=== PATIENT | female | born 1990 | race Caucasian/White ===

== ENCOUNTER 2018-04-09 19:04 | Inpatient (IN) | payer OTHER, SELFPAY ==
[2018-04-09 19:43] VITALS: BMI 37.0
[2018-04-09] MEDS: 0.9% Saline Lock 10 ML Syringe IV (21:00)
[2018-04-09 21:06] LABS: Bedside Glucose 78 mg/dL (70-110)
[2018-04-09 21:26] LABS: Hematocrit 32.3 % (37-47); Hemoglobin 10.1 g/dl (12.0-15.0); Mean Corp Hgb Conc 31.3 g/gl (32-36); Mean Corpuscular Hgb 24.7 pg (27.0-32.0); Mean Platelet Vol. 9.9 fl (6.2-12.0); Platelet Count 279 K/mm3 (150-450); RBC Distribution Width CV 13.9 % (11.6-14.6); RBC Distribution Width SD 39.5 fl (35.1-43.9); Red Blood Count 4.09 M/mm3 (4.2-5.4); White Blood Count 10.6 K/mm3 (4.4-11.0)
[2018-04-09 21:27] LABS: Scan Indicated on CBC? Y/N NO
[2018-04-09] MEDS: Lactated Ringers 1,000 ML 50 ML IV (23:35)
[2018-04-09] MEDS: Oxytocin 30 units/NS 500 ml 30 UNITS/500 ML IV.SOLN IV (23:35)
[2018-04-10 00:31] LABS: Bedside Glucose 87 mg/dL (70-110)
--- NOTE | 2018-04-10 00:41 | PCM.HP.OB ---
- Problem List (1) Gestational diabetes mellitus Status: Acute Qualifiers: Gestational diabetes mellitus control: diet-controlled Trimester: third trimester Qualified Code(s): O24.410 - Gestational diabetes mellitus in , diet controlled (2) Gestational hypertension Status: Acute Qualifiers: Trimester: third trimester Qualified Code(s): O13.3 - Gestational [-induced] hypertension without significant proteinuria, third trimester History Date of Admission: 04/09/18 Final HAVEN: 04/22/18 Gestational age: 38 Weeks and 2 Days History of this : This is a 27 year-old, G [3], P [2], at 38 weeks gestational age. GBS neg Induction for Gestational hypertension and GDMA1 Allergies amoxicillin Allergy (Verified 04/09/18 19:50) Rash Penicillins Allergy (Verified 04/09/18 19:50) Rash Smoking Status: Never smoker Heart Tracing: Cat 1 and reactive TOCO Analysis: q 2-5 min History Past Pregnancies: Past Pregnancies Delivery Date Name GA/Weeks Outcome Route Weight Infant Gender Labor Length Anesthesia Delivery Location Provider FOB 2014 39 F 2016 38 M Labs: GBS neg Expected Infant Delivery Method: Spontaneous Vaginal Describe any other labor & delivery plans:: EFW 8#4 Number of Visits: 14 Assessment/Plan All Active Problems Gestational diabetes mellitus (Acute) Gestational hypertension (Acute) This is a 27 year-old, G [], P [], at 38 weeks gestational age.
[2018-04-10] MEDS: Oxytocin 30 units/NS 500 ml 30 UNITS/500 ML IV.SOLN 334 UNITS IV (04:25)
--- NOTE | 2018-04-10 04:57 | PCM.OB.VAG ---
- Problem List (1) Gestational diabetes mellitus Status: Acute Qualifiers: Gestational diabetes mellitus control: diet-controlled Trimester: third trimester Qualified Code(s): O24.410 - Gestational diabetes mellitus in , diet controlled (2) Gestational hypertension Status: Acute Qualifiers: Trimester: third trimester Qualified Code(s): O13.3 - Gestational [-induced] hypertension without significant proteinuria, third trimester Vaginal Delivery Maternal Presentation: Medically Indicated Induction Method of Induction: Pitocin, Amniotomy Medical Reason for Induction: Gestational Hypertension Amniotic Membrane Rupture Type: Artificial Rupture of Membrane time: 5404/10/2018 Amniotic Fluid Description: Clear Final HAVEN: 04/22/18 Gestational age: 38 Weeks and 2 Days Date of Procedure: 04/10/18 Pre-Operative Diagnosis: GHTN, GDMA1 Post-Operative Diagnosis: same+ shoulder dystocia Surgery/ Procedure Performed: Spontaneous Vaginal Delivery Type of Anesthesia: Epidural Presentation: Vertex, MANUEL Placental Delivery Description: Spontaneous Placenta Disposition: [facility] Cord Vessel Description: 3 Vessels Nuchal Cord Compression: Without compression Cord Entanglement: Around neck x 1, loose Drain: Lowe to straight drain Estimated Blood Loss: 250 Infant A gender: Female (1 minute): 8 (5 minute): 9 Episiotomy Description: None Laceration: None Medications given after delivery: IV Pitocin Complications: None - Shoulder dystocia MANUEL Keith and suprapubic used to decompress with ease. Mother and FOB made aware and event discussed. Baby moving upper extremities equally.
[2018-04-10] MEDS: Oxytocin 30 units/NS 500 ml 30 UNITS/500 ML IV.SOLN 167 UNITS IV (05:00)
[2018-04-10 08:00] VITALS: BP 134/76; PULSE 80; RESP 16; TEMP 37.1
[2018-04-10] MEDS: Ibuprofen 600 MG Tablet PO ×2 (08:50→16:41)
[2018-04-10 13:05] VITALS: BP 117/56; PULSE 65; RESP 16; TEMP 36.9
[2018-04-10 16:10] VITALS: BP 141/94; PULSE 66; RESP 16; TEMP 36.9; O2SAT 98
[2018-04-10] MEDS: Senna/Docusate Sodium 1 Tablet PO (16:41)
[2018-04-10 18:30] VITALS: BP 146/87
--- NOTE | 2018-04-10 18:43 | NURSING ---
Dr. Jeff phoned. voicemail left
[2018-04-10 20:39] VITALS: BP 136/83; PULSE 71; RESP 18; TEMP 36.7; O2SAT 98
[2018-04-11 00:49] VITALS: BP 117/73; PULSE 73; RESP 18; TEMP 36.7; O2SAT 99
[2018-04-11] MEDS: Ibuprofen 600 MG Tablet PO (03:07)
[2018-04-11 03:08] VITALS: BP 144/95; PULSE 93; RESP 18; TEMP 36.8; O2SAT 98
[2018-04-11 08:58] VITALS: BP 142/84; PULSE 74; RESP 18; TEMP 36.7
[2018-04-11 15:07] VITALS: BP 129/84; PULSE 87; RESP 18; TEMP 36.8
--- NOTE | 2018-04-11 18:06 | PCM.PN.OB ---
Patient Problems: Active and Suspected Problems (Last Updated 04/10/18 @ 00:45 by Beverly Jeff DO) Gestational diabetes mellitus (Acute) Gestational hypertension (Acute) Subjective: doing well no complaints - Physical Exam General: Alert, Oriented x3 Vital Signs Temp Pulse Resp BP Pulse Ox 98.3 F 87 18 129/84 H 98 04/11/18 15:07 04/11/18 15:07 04/11/18 15:07 04/11/18 15:07 04/11/18 03:08 Oxygen Delivery Method Room Air Weight: 244 lb Body Mass Index (BMI) 37.0 Intake and Output for Last 24 Hours 04/09/18 04/10/18 04/11/18 23:59 23:59 23:59 Intake Total 1700 / 1700 Output Total 650 / 650 Balance 1050 / 1050 Medical Necessity - Tobacco Use Smoking Status: Never smoker Assessment/Plan All Active Problems (Last Updated 04/10/18 @ 00:45 by Beverly Jeff DO) Gestational diabetes mellitus (Acute) Gestational hypertension (Acute) s/p PPD # 1 1. routine post delivery care 2. breast feeding- support given 3. rh negative- rhogam PRN 4. rubella immune infant SCN GDMA1- check FBS in am
--- NOTE | 2018-04-11 18:07 | PCM.DCVAG ---
Discharge Diet: No Restrictions Discharge Activity: Return to Normal Activity, May not drive while taking narcotic pain medications., May Shower May resume sexual activity in: 4-6 weeks Call your doctor if your incision/area has: Continuous Slow Oozing, Sudden Increased Bleeding, Increased Pain/ Swelling, Increased Redness, Foul Smelling Discharge Additional Instructions: If you experience any of the following, contact your healthcare provider. Bleeding that soaks a pad every hour for 2 hours Fever 100.4 or higher Unrelieved incision or abdominal pain Swelling, redness, discharge or bleeding from your incision or episiotomy site Your incision begins to separate Problems urinating (including inability to urinate or burning while urinating). Visual changes Severe headache Flu-like symptoms Pain or redness in one of both of your breasts Pain, warmth, tenderness or swelling in your legs, especially the calf area Frequent nausea and vomiting Symptoms of depression or anxiety If you experience any of the following, call 911 or go to the nearest Emergency Room. Chest pain Problems breathing Seizure activity Partial or complete paralysis of a body part, slurred speech, weakness or drooping of the face, or a sudden inability to walk or hold your balance Allergies/Adverse Reactions: Allergies amoxicillin Allergy (Verified 04/09/18 19:50) Rash Penicillins Allergy (Verified 04/09/18 19:50) Rash Please Follow Up With: Adelina Vallejo MD - [phone] When: Call to make an appointment with your doctor in 6 weeks. If you had elevated Blood pressure or 4th degree laceration you will need to be seen in 2 weeks. Primary Care Physician: Joe Garcia [Primary Care Provider] - Test Results: Test results from this visit will be discussed in further detail at your follow-up appointment, if applicable.
--- NOTE | 2018-04-11 18:08 | DCINST_ITS ---
Discharge Diet: No Restrictions Discharge Activity: Return to Normal Activity, May not drive while taking narcotic pain medications., May Shower May resume sexual activity in: 4-6 weeks Call your doctor if your incision/area has: Continuous Slow Oozing, Sudden Increased Bleeding, Increased Pain/ Swelling, Increased Redness, Foul Smelling Discharge Additional Instructions: If you experience any of the following, contact your healthcare provider. * Bleeding that soaks a pad every hour for 2 hours * Fever 100.4 or higher * Unrelieved incision or abdominal pain * Swelling, redness, discharge or bleeding from your incision or episiotomy site * Your incision begins to separate * Problems urinating (including inability to urinate or burning while urinating). * Visual changes * Severe headache * Flu-like symptoms * Pain or redness in one of both of your breasts * Pain, warmth, tenderness or swelling in your legs, especially the calf area * Frequent nausea and vomiting * Symptoms of depression or anxiety If you experience any of the following, call 911 or go to the nearest Emergency Room. * Chest pain * Problems breathing * Seizure activity * Partial or complete paralysis of a body part, slurred speech, weakness or drooping of the face, or a sudden inability to walk or hold your balance Allergies/Adverse Reactions: Allergies amoxicillin Allergy (Verified 04/09/18 19:50) Rash Penicillins Allergy (Verified 04/09/18 19:50) Rash Please Follow Up With: Adelina Vallejo MD - [phone] When: Call to make an appointment with your doctor in 6 weeks. If you had elevated Blood pressure or 4th degree laceration you will need to be seen in 2 weeks. Primary Care Physician: Joe Garcia [Primary Care Provider] - Test Results: Test results from this visit will be discussed in further detail at your follow- up appointment, if applicable.
--- NOTE | 2018-04-11 21:16 | NURSING ---
RN discussed with pt that she is able to stay and be discharged tomorrow or may be discharged tonight to courtesy room status if pt desires per physician. pt states im feeling really good, i would like to be discharged tonight
[2018-04-11 21:26] VITALS: BP 116/70; PULSE 79; RESP 18; TEMP 36.9; O2SAT 98
--- NOTE | 2018-04-11 22:23 | NURSING ---
3270 pt discharged, baby remains in SCN, pt now on courtesy room status, papers reviewed and signed with pt and
== END 2018-04-11 22:07 | disposition home or self-care (01) | DRG 807 ==
PROVIDERS: Admitting Provider Obstetrics & Gynecology; Family Provider Family Medicine; PCP Family Medicine; Visit Provider Obstetrics & Gynecology
DX: O24.420 Gestational diabetes mellitus in childbirth, diet controlled (principal); Z37.0 Single live birth; O66.0 Obstructed labor due to shoulder dystocia; O69.81X0 Labor and delivery complicated by cord around neck, without compression, not applicable or unspecified; O13.4 Gestational [pregnancy-induced] hypertension without significant proteinuria, complicating childbirth; Z3A.38 38 weeks gestation of pregnancy
CPT/HCPCS: 59025; 59050; 82962; 85027; 85461; 86850; 86900; 90384; 99218; J7120; A4216; G0378; J2790

== ENCOUNTER → 2019-12-17 11:12 | Outpatient (CLI) | payer OTHER, SELFPAY ==
[2019-12-17 10:15] VITALS: BMI 37.0
[2019-12-17 11:36] LABS: Glucose Challenge Gest 1H 50g 145 mg/dL (70-140)
== END ==
PROVIDERS: PCP Family Medicine; Referring Provider Obstetrics & Gynecology; Visit Provider Obstetrics & Gynecology
DX: O99.210 Obesity complicating pregnancy, unspecified trimester (principal); E66.9 Obesity, unspecified; Z3A.00 Weeks of gestation of pregnancy not specified
CPT/HCPCS: 36415; 82950

== ENCOUNTER → 2020-01-15 15:35 | Outpatient (CLI) | payer OTHER, SELFPAY ==
[2020-01-15 15:03] VITALS: BMI 33.6
[2020-01-15 16:29] LABS: Glucose Challenge Gest 1H 50g 151 mg/dL (70-140)
[2020-01-15 18:17] LABS: Amphetamine Urine VISTA NEGATIVE (<1000 ng/mL); Barbiturate Urine VISTA NEGATIVE (< 200 ng/mL); Benzodiazepine Urine VISTA NEGATIVE (< 200 ng/mL); Cocaine Urine VISTA NEGATIVE (< 300 ng/mL); Ecstacy Urine VISTA NEGATIVE (< 500 ng/mL); Methadone Urine VISTA NEGATIVE (< 300 ng/mL); PCP Urine VISTA NEGATIVE (< 25 ng/mL); THC Urine VISTA NEGATIVE (< 50 ng/mL); Vista UDS pH Range 6
[2020-01-16 09:29] LABS: Hepatitis C Antibody Non-Reactive (Nonreactive)
== END ==
PROVIDERS: PCP Family Medicine; Referring Provider Nurse Practitioner Women's Health; Visit Provider Nurse Practitioner Women's Health
DX: O09.90 Supervision of high risk pregnancy, unspecified, unspecified trimester (principal); Z3A.00 Weeks of gestation of pregnancy not specified
CPT/HCPCS: 36415; 80307; 82950; 86762; 86803

== ENCOUNTER → 2020-04-01 15:19 | Outpatient (CLI) | payer OTHER, SELFPAY ==
[2020-04-01 15:08] VITALS: BMI 34.7
[2020-04-01 15:52] LABS: Absolute Lymphocyte Count 2.14 X10^3/uL (0.83-4.51); Absolute Neutrophil Count 9.7 X10^3/uL (2.0-7.7); Basophil# 0.02 X10^3/uL; Basophil% 0.2 % (0-1); Eosinophil# 0.05 X10^3/uL; Eosinophils% 0.4 % (0-5); Hematocrit 34.4 % (37-47); Hemoglobin 11.7 g/dL (12.0-15.0); Lymphocyte # 2.14 X10^3/ul (4.0); Lymphocyte % 17.2 % (19-41); Mean Corpuscular Hgb 29.5 pg (27.0-32.0); Mean Corpuscular Volume 86.9 fL (81-99); Monocyte# 0.45 X10^3/uL; Monocyte% 3.6 % (0-10); NRBC Flagged by Analyzer 0 % (0-5); Neutrophil # 9.71 X10^3/uL (2.7-7.7); Platelet Count 262 K/mm3 (150-450); RBC Distribution Width CV 13.4 % (11.6-14.6); RBC Distribution Width SD 41.6 fl (35.1-43.9); Red Blood Count 3.96 M/mm3 (4.2-5.4); White Blood Count 12.4 K/mm3 (4.4-11.0)
== END ==
PROVIDERS: Obstetrics & Gynecology; PCP Family Medicine; Referring Provider Nurse Practitioner Women's Health; Visit Provider Nurse Practitioner Women's Health
DX: O09.90 Supervision of high risk pregnancy, unspecified, unspecified trimester (principal)
CPT/HCPCS: 36415; 85025; 86850; 86900; 86901

== ENCOUNTER → 2020-04-30 14:18 | Outpatient (CLI) | payer OTHER, SELFPAY ==
[2020-04-01 15:51] VITALS: BMI 34.7
[2020-04-15 15:17] VITALS: BMI 34.7
--- NOTE | 2020-04-30 14:23 | US_ITS ---
STUDY: SECOND AND THIRD TRIMESTER OBSTETRICAL ULTRASOUND - LIMITED REASON FOR EXAM: Female, 29 years old GROWTH -- HX OF DIABETES -- SUPERVISION OF HIGH RISK LMP: 09/17/2019. PRIOR ULTRASOUND: None. TECHNIQUE: Transabdominal TECHNICAL QUALITY: Adequate. FINDINGS: There is a single intrauterine fetus. The fetus is in a cephalic presentation. There is demonstrated cardiac activity with a heart rate of 138 bpm. There is a normal amniotic fluid volume. The largest amniotic fluid pocket measures 3.8 cm x 4 cm. The amniotic fluid index (TJ) is 12.59 cm. The placenta is posterior in location and is not low lying. There are Grade 1 placental changes. The cervix measures 4.4 cm in length. BIOMETRY: BPD: 8.42 cm: 33 weeks, 6 days HC: 30.64 cm: 32 weeks, 5 days AC: 28.13 cm: 32 weeks, 1 days FL: 6.38 cm: 32 weeks, 6 days Age by LMP: 32 weeks, 2 days. HAVEN by LMP: 06/24/2020. age by current US: 33 weeks, 0 days. HAVEN by current US: 06/18/2020. Estimated weight: 0 grams, +/- 308 grams, 60.1 percentile. US/OB Limited With Biometrics IMPRESSION: Single live intrauterine gestation with a mean gestational age of 33 weeks. Electronically Signed: Yuriy Hancock MD at 15:32 EST , Service support ,
== END ==
PROVIDERS: PCP Family Medicine; Referring Provider Nurse Practitioner Women's Health; Visit Provider Nurse Practitioner Women's Health
DX: O24.415 Gestational diabetes mellitus in pregnancy, controlled by oral hypoglycemic drugs (principal); Z3A.33 33 weeks gestation of pregnancy; O09.93 Supervision of high risk pregnancy, unspecified, third trimester
CPT/HCPCS: 76816

== ENCOUNTER → 2020-05-25 13:49 | Outpatient (CLI) | payer OTHER, SELFPAY ==
[2020-04-01 15:51] VITALS: BMI 34.7
[2020-05-21 15:18] VITALS: BMI 34.7
--- NOTE | 2020-05-25 13:53 | US_ITS ---
STUDY: SECOND AND THIRD TRIMESTER OBSTETRICAL ULTRASOUND - LIMITED REASON FOR EXAM: Female, 29 years old growth @ 36 weeks. Pt currently 28 weeks LMP: 09/18/2019. PRIOR ULTRASOUND: Comparison is made with prior study dated 04/30/2020. TECHNIQUE: Transabdominal TECHNICAL QUALITY: Adequate. FINDINGS: There is a single intrauterine fetus. The fetus is in a cephalic presentation. There is demonstrated cardiac activity with a heart rate of 166 bpm. There is a normal amniotic fluid volume. The largest amniotic fluid pocket measures 4.5 cm x 3 cm. The amniotic fluid index (TJ) is 14.82 cm. The placenta is posterior in location and is not low lying. There are Grade 1 placental changes. The cervix measures 4.3 cm in length. BIOMETRY: BPD: 9.1 cm: 37 weeks, 0 days HC: 33.33 cm: 38 weeks, 0 days AC: 33 cm: 36 weeks, 6 days FL: 7.21 cm: 36 weeks, 6 days Age by LMP: 35 weeks, 5 days. HAVEN by LMP: 06/24/2020. age by prior US: 36 weeks, 4 days. HAVEN by prior US: 06/18/2020. age by current US: 37 weeks, 0 days. HAVEN by current US: 06/15/2020. Estimated weight: 3113 grams, +/- 467 grams, 84 percentile. US/OB Limited With Biometrics IMPRESSION: Single live intrauterine gestation with a mean gestational age of 36 weeks and 4 days. The measurements obtained today fall within the normal expected range. Electronically Signed: Yuriy Hancock MD at 15:48 EST , Service support ,
== END ==
PROVIDERS: PCP Family Medicine; Referring Provider Nurse Practitioner Women's Health; Visit Provider Nurse Practitioner Women's Health
DX: O24.415 Gestational diabetes mellitus in pregnancy, controlled by oral hypoglycemic drugs (principal); O09.90 Supervision of high risk pregnancy, unspecified, unspecified trimester; Z3A.36 36 weeks gestation of pregnancy
CPT/HCPCS: 76816

== ENCOUNTER → 2020-05-28 16:38 | Outpatient (CLI) | payer OTHER, SELFPAY ==
[2020-05-28 15:18] VITALS: BMI 34.7
== END ==
PROVIDERS: PCP Family Medicine; Visit Provider Obstetrics & Gynecology
DX: O09.90 Supervision of high risk pregnancy, unspecified, unspecified trimester (principal); Z3A.00 Weeks of gestation of pregnancy not specified
CPT/HCPCS: 87081

== ENCOUNTER 2020-06-17 07:00 | Inpatient (IN) | payer OTHER, SELFPAY ==
[2020-06-15 15:42] VITALS: BMI 34.0
[2020-06-17] VITALS (33 sets, daily range): BP systolic 120–155; BP diastolic 60–94; PULSE 69–122; RESP 16; TEMP 36.5–37.4; O2SAT 86–100; BMI 34.3
[2020-06-17] MEDS: Lactated Ringers 1,000 ML 50 ML IV (07:45)
[2020-06-17 08:04] LABS: Absolute Lymphocyte Count 1.83 X10^3/uL (0.83-4.51); Absolute Neutrophil Count 6.2 X10^3/uL (2.0-7.7); Basophil# 0.02 X10^3/uL; Basophil% 0.2 % (0-1); Eosinophil# 0.02 X10^3/uL; Eosinophils% 0.2 % (0-5); Hematocrit 35.7 % (37-47); Hemoglobin 11.8 g/dL (12.0-15.0); Lymphocyte # 1.83 X10^3/ul (4.0); Lymphocyte % 21.5 % (19-41); Mean Corp Hgb Conc 33.1 g/dL (32-36); Mean Corpuscular Volume 84.6 fL (81-99); Mean Platelet Vol. 10.1 fl (6.2-12.0); Monocyte# 0.36 X10^3/uL; Monocyte% 4.2 % (0-10); NRBC Flagged by Analyzer 0 % (0-5); Neutrophil # 6.24 X10^3/uL (2.7-7.7); Neutrophil % 73.5 % (47-70); Platelet Count 246 K/mm3 (150-450); RBC Distribution Width CV 15.2 % (11.6-14.6); RBC Distribution Width SD 47.1 fl (35.1-43.9); Red Blood Count 4.22 M/mm3 (4.2-5.4); White Blood Count 8.5 K/mm3 (4.4-11.0)
[2020-06-17] MEDS: Oxytocin 30 units/NS 500 ml 30 UNITS/500 ML IV.SOLN IV (08:25)
[2020-06-17 08:51] LABS: Bedside Glucose 86 mg/dL (70-110)
[2020-06-17 09:51] LABS: Bedside Glucose 84 mg/dL (70-110)
--- NOTE | 2020-06-17 10:11 | PCM.HPOB.BLA ---
- Problem List (1) Encounter for induction of labor Status: Acute (2) 36 weeks gestation of Status: Acute Comment: GBS negative. electronic covid test ordered 05/28/20 (scheduled for 06/11/20 at 1410) (3) PCOS (polycystic ovarian syndrome) Status: Chronic (4) Status: Acute Qualifiers: Comment: anatomy normal repeat 2 wks for addtl views, repeat nl (5) Supervision of high risk , antepartum Status: Acute Comment: PRR HAVEN 06/22/20 Boy! Aravindruel Garcia/Ryan/Mae Spouse [place] (6) Infertility Status: Acute Comment: Clomid and HCG (7) Gestational diabetes mellitus Status: Acute Qualifiers: Comment: With all 3 pregnancies. Early 1h GCT abnormal. Elects to be treated as GDM - doesn't tolerate 3h GCT. Controlled on metformin 500mg BID last . Declines endo - desires metformin unless worsening control. Ordered 500 BID 02/10. Plan NST 2x/wk and q4 growths at 32 weeks. Delivery by 39 weeks. Growth US 2 EFW 60% (8) Gestational hypertension Status: Acute Qualifiers: Comment: In last . BP elevated at new OB, but reports white coat hypertension. 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 Will keep home BP log. NL growth 04/30 (9) Blood type, Rh negative Status: Acute Comment: A neg Rh0gam at 28 weeks (10) BMI 37.0-37.9, adult Status: Acute History and Physical Date of Admission: 06/17/20 Vital Signs 06/15/20 Height 5 ft 9 in 06/15/20 Weight: 230 lb 06/15/20 BMI 34.0 06/15/20 BP 134/72 H Intake Visit Reasons: 39 WK NST ONLY (twice weekly) [employer] Required: No Is patient in pain?: No Allergies amoxicillin Allergy (Verified 06/17/20 08:01) Rash Penicillins Allergy (Verified 06/17/20 08:01) Rash Medications ,[id number] 27 mg-folic acid 1 mg-DSS 50 mg-dha 250 mg capsule 1 cap PO DAILY cap 12/17/19 history Confirmed 06/17/20 blood sugar diagnostic See Rx Instructions .ROUTE .MEDSUPPLY #100 ea 01/16/20 Rx Confirmed 06/15/20 lancets See Rx Instructions .ROUTE .MEDSUPPLY #200 ea 01/16/20 Rx Confirmed 06/15/20 aspirin 81 mg tablet,delayed release 81 mg PO DAILY 04/01/20 history Confirmed 06/17/20 Metformin HCl Glucophage 500 mg PO BID 06/17/20 history Confirmed 06/17/20 Last Menstral Period: 09/17/19 Zika: Zika virus screening: Negative : No PFSH PFSH Medical History PCOS (polycystic ovarian syndrome) (Chronic) Blood type, Rh negative (Acute) BMI 37.0-37.9, adult (Acute) Surgical History S/P wisdom tooth extraction (Resolved) Family History Grandfather Diabetes Aunt Diabetes Father Hypothyroidism Social History (Updated 06/17/20 @ 10:[address] Adelina Vallejo MD) Smoking Status: Never smoker alcohol intake: never substance use type: does not use caffeine: No what type of physical activity do you participate in: none seatbelt use: always do you feel safe at home: Yes additional social history: [employer] Patient is RN at [employer] Pregancy History 4 Elective abortions Hx Para 3 Spontaneous abortions Hx # Term Pregnancies Ectopic pregnancies Hx # Pregnancies Multiple births # of living children Past Pregnancies Del. Date Name GA/Weeks Outcome Route Bth Weight Infant Gen Labor Lgth Anesthesia Del [facility] Provider FOB 08/14/14 Radha 39 live - full term 8lbs 1oz Female [address] Flor Nice 07/12/16 Ryan 39 live - full term 7lbs 14oz Male [address] Tomer Nice 04/10/18 Mae 39 live - full term 8lbs 1oz Female 48 minutes epidural [facility] Dr. Tomer Nice Delivery Date: 08/14/14 Gestational diabetes Yasmin,Selina Delivery Date: 07/12/16 Gestational diabetes Yasmin,Selina Delivery Date: 04/10/18 Gestational diabetes, infant had low blood pressure Yasmin,Selina HPI 39 WK NST ONLY (twice weekly): Details: KURT GARCIA is a 29 year old who presents for induction of labor secondary to GDM A2. Well-controlled she denies any vaginal bleeding loss of fluid admits good movement no regular contractions OB Visit HAVEN Calculator Estimated Delivery Date Method Current WG Current Estimate 06/24/20 LMP (Certain) 39w 0d Expected Delivery Route/Plan iol 39 weeks GDMA2 - scheduled for 06/17 at 0700 Labor Preferences- CB/BF classes: no labor support person: [place] labor intervention preferences: open to standard interventions pain management options preferred: epidural cut cord/dad catch: yes : yes PP control planned: discussed possible routes of delivery and associated risks: special requests: Specific Issue/Plans flu vaccine: no tdap vaccine: yes rhogam: yes LARC form signed: yes movement and labor precautions reviewed. Problem list reviewed and updated with the most current plan of care details and appropriate orders placed. Relevant counseling for the gestational age provided. Continue routine care and follow up unless otherwise noted in visit notes/problem list details Initial Weight: Not Recorded Date EGA Weight BP Urine Prot Glucose FHR FuHt Pres Dilation Effaced St Visit Note 12/17/19 12w 6d 220 lb 6 oz 136/90 Negative Negative 170 GP - CHANDLER from [facility]. Clomid with trigger to conceive - 1 round. No cramping or bleeding. 01/15/20 17w 0d 221 lb 4 oz 126/78 Negative Negative 149 MH-No vB, LOF. Ordered MFM US. Rpt 1 hr GCT and remaining PNL today. Feeling some flutters. 02/11/20 20w 6d 230 lb 148/70 Negative Negative 150 GP - no cramping of bleeding. Discussed care for GDM. PP BGTs normal. Fastings high 90s. Was on metformin last . Discussed insulin is considered standard and typically send to endo for insulin management. Desires initiation of metformin and to follow with our office for management. 03/10/20 24w 6d 228 lb 128/62 Negative Negative 145 SM- no vb lof good fm no regular ctx BS well controlled 04/01/20 28w 0d 228 lb 7 oz 123/78 152 28 MH-Good FM. No reg CTX. No VB, LOF. CBC, T&S, tdap and rhogam. Larc. 04/15/20 30w 0d 228 lb 118/57 Negative Negative 145 30 SM- no vb lof good fm no reuglar ctx, BS borderline controlled. fu in 2 weeks and start increased testing 04/30/20 32w 1d 228 lb 118/64 Negative Negative 140 GP - no LOF, VB, DFM, ctx. BGTs well controlled after adding evening snack with protein. NST reactive. Growth 60%ile. 05/04/20 32w 5d 228 lb 4 oz 132/68 140 33 SM- no vb lof good fm no regular ctx 05/07/20 33w 1d 229 lb 2 oz 138/82 Negative Negative 140 34 GP - no LOF, VB, DFM, ctx. BGTs well controlled. Discussed would be for IOL at 39w. 05/11/20 33w 5d 229 lb Negative Negative 135 MH NST only. Reactive. Reviewed home glucose and BP readings-WNL 05/14/20 34w 1d 229 lb 120/84 Negative Negative 130 SM- nst. no vn lof good fm no reuglar ctx BS well controlled 05/18/20 34w 5d 228 lb 4 oz 130/82 Negative Negative 130 SM- no vb lof good fm no regular ctx 05/21/20 35w 1d 228 lb 4 oz 134/80 Negative Negative 130 GP - no LOF, VB, DFM, ctx. BGTs controlled on metformin. 05/25/20 35w 5d 228 lb 8 oz 136/80 Negative Negative 149 MH-NST only reactive 05/28/20 36w 1d 228 lb 2 oz 118/82 Negative Negative 130 36 Cephalic 1 50 -3 GP - no LOF, VB, DFM, ctx. BGTs controlled. NST reactive. GBS done today. 06/01/20 36w 5d 228 lb 120/78 Negative Negative 130 37 Cephalic SM- nst only 06/04/20 37w 1d 230 lb 188 lb 132/90 128/78 Negative Negative 130 38 Cephalic sm- NO VB lof good fm no regular ctx bs well controlled discussed IOL 39 06/08/20 37w 5d 229 lb 130/84 Negative Negative 140 MH nst only/reactive 06/11/20 38w 1d 232 lb 4 oz 136/78 Negative Negative 140 38 Cephalic 3 50 -2 GP - no LOF, VB, DFM, ctx. Scheduled for IOL at 39/0 for GDMA2 controlled on metformin. 06/15/20 38w 5d 230 lb 134/72 Negative Negative 130 Cephalic SM- no vb lof good fm no regular ctx bs controlled ACOG Second Trimester Second Trimester: Signs and Symptoms of Labor, Selecting a care provider, Reproductive Life Planning, Care Planning, Depression/Anxiety and Intimate Partner Violence; discussed Tobacco Cessation Diagnostics Diagnostics Diagnostics Blood Type Pending 06/17/20 Antibody Screen Pending 06/17/20 Hgb 11.8 g/dL (12.0-15.0) L 06/17/20 Hct 35.7 % (37-47) L 06/17/20 Details: HIV: Urine Culture: Sequential Screen: NIPT Screen: ROS Const Reports system reviewed and no additional complaints, except as docu Card Reports system reviewed and no additional complaints, except as docu Resp Reports system reviewed and no additional complaints, except as docu GI Reports system reviewed and no additional complaints, except as docu, Reports nausea Reports system reviewed and no additional complaints, except as docu Musc Reports system reviewed and no additional complaints, except as docu Exam Const General: cooperative, healthy appearing, comfortable, anxious HENMT Head: normal to inspection Nose: external nose normal Face and sinus: normal facial exam Neck Neck: normal visual inspection, full ROM, no lymphadenopathy Thyroid: thyroid normal Chest Chest palpation & inspection: normal inspection of the chest Resp Effort & Inspection: normal respiratory effort GI Inspection: normal to inspection Palpation: soft, other (gravid uterus) Other: vertex and appropriate size for gestational age Other: Cervical Exam: Extrem General: pedal edema Office Procedures OB NST Non-Stress Test Indications for Monitoring: Yes diabetes Heart Rate Baseline: 130 Heart Rate Variability: moderate Movement: Present Heart Rate Accelerations: Present Decelerations: Absent Contractions: Absent Impression: Yes Reactive Non-Stress Test Category 1 Results POC Urinalysis 2 Dip (Clinic) Office Urine Glucose Negative Last Edit by Ema Lehman on 06/15/20 15:44 Office Urine Protein Negative Last Edit by Ema Lehman on 06/15/20 15:44 Assessment & Plan Problems 1. BMI 37.0-37.9, adult Z68.37 2. Blood type, Rh negative Z67.91 A neg Rh0gam at 28 weeks 3. Gestational hypertension O13.9 In last . BP elevated at new OB, but reports white coat hypertension. 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 Will keep home BP log. NL growth 2/5 4. Gestational diabetes mellitus O24.419 With all 3 pregnancies. Early 1h GCT abnormal. Elects to be treated as GDM - doesn't tolerate 3h GCT. Controlled on metformin 500mg BID last . Declines endo - desires metformin unless worsening control. Ordered 500 BID 02/10. Plan NST 2x/wk and q4 growths at 32 weeks. Delivery by 39 weeks. Growth US 2/5 EFW 60% 5. Infertility Clomid and HCG 6. Supervision of high risk , antepartum O09.90 PRR HAVEN 06/22/20 Boy! Aravind Garcia/Ryan/Mae Spouse [place] 7. Z34.90 anatomy normal repeat 2 wks for addtl views, repeat nl 8. 36 weeks gestation of Z3A.36 GBS negative. electronic covid test ordered 05/28/20 (scheduled for 06/11/20 at 1410) 9. PCOS (polycystic ovarian syndrome) E28.2 Patient presents IOL, plan management for with pitocin/AROM. Pain management: Plans epidural. GBS negative. Management of any complications: GDM A2 well-controlled I have reviewed the COUNTS INCLUDE 234 BEDS AT THE [facility] and made any clinically relevant updates.
[2020-06-17] MEDS: Lactated Ringers 500 ML 999 ML IV (13:15)
[2020-06-17 13:41] LABS: Bedside Glucose 66 mg/dL (70-110)
[2020-06-17] MEDS: fentaNYL-bupivacaine (epidural) 100 ML BAG EPIDURAL (14:09)
[2020-06-17 14:41] LABS: Bedside Glucose 80 mg/dL (70-110)
[2020-06-17] MEDS: Oxytocin 30 units/NS 500 ml 30 UNITS/500 ML IV.SOLN 334 UNITS IV (14:59)
--- NOTE | 2020-06-17 15:08 | OP.PCM_ITS ---
Problem List (1) Encounter for induction of labor Status: Acute (2) 36 weeks gestation of Status: Acute Comment: GBS negative. electronic covid test ordered 05/28/20 (scheduled for 06/11/20 at 1410) (3) PCOS (polycystic ovarian syndrome) Status: Chronic (4) Status: Acute Qualifiers: Comment: anatomy normal repeat 2 wks for addtl views, repeat nl (5) Supervision of high risk , antepartum Status: Acute Comment: PRR HAVEN 06/22/20 Boy! [facility] Jenifer mack/Ryan/Mae Spouse [place] (6) Infertility Status: Acute Comment: Clomid and HCG (7) Gestational diabetes mellitus Status: Acute Qualifiers: Comment: With all 3 pregnancies. Early 1h GCT abnormal. Elects to be treated as GDM - doesn't tolerate 3h GCT. Controlled on metformin 500mg BID last . Declines endo - desires metformin unless worsening control. Ordered 500 BID 02/10. Plan NST 2x/wk and q4 growths at 32 weeks. Delivery by 39 weeks. Growth US 2/5 EFW 60% (8) Gestational hypertension Status: Acute Qualifiers: Comment: In last . BP elevated at new OB, but reports white coat hypertension. 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 Will keep home BP log. NL growth 2/5 (9) Blood type, Rh negative Status: Acute Comment: A neg Rh0gam at 28 weeks (10) BMI 37.0-37.9, adult Status: Acute Vaginal Delivery Maternal Presentation: Medically Indicated Induction iol gdma2 Method of Induction: Pitocin Amniotic Membrane Rupture Type: Artificial Amniotic Fluid Description: Clear Final HAVEN: 06/24/20 Gestational age: 39 Weeks and 0 Days Date of Procedure: 06/17/20 Pre-Operative Diagnosis: iol gdma2 Post-Operative Diagnosis: same Surgery/ Procedure Performed: Spontaneous Vaginal Delivery Type of Anesthesia: Epidural Description of Procedure: Patient began pushing and delivered the head in the ISMA presentation. The head was delivered atraumatically and a loose nuchal cord ?1 was identified and easily reduced over the 's head. The anterior and posterior shoulders delivered without complication followed by the rest of the and the infant was placed on the maternal abdomen. Delayed cord clamping was employed for approximately 60 seconds. Cord was clamped and cut and gentle traction was applied to the cord and the placenta delivered spontaneously immediately following it was noted to be intact with three-vessel cord. The perineum and vagina were inspected and noted to have no laceration. EBL was 100 cc. Patient and tolerated delivery well. Presentation: ISMA Placental Delivery Description: Spontaneous Placenta Disposition: [facility] Cord Vessel Description: 3 Vessels Cord Entanglement: Around neck x 1, loose Estimated Blood Loss: 100 A gender: Male Episiotomy Description: None Laceration: None Medications given after delivery: IV Pitocin Complications: None Multi Select Codes - Urinary/Genital Urinary/Genital CPT Codes: 56486 Vaginal Delivery [facility]
[2020-06-17 16:11] LABS: Bedside Glucose 78 mg/dL (70-110)
[2020-06-17] MEDS: 0.9% Saline Lock 10 ML Syringe IV (17:08)
[2020-06-17] MEDS: Naproxen 250 MG Tablet 500 MG PO (20:48)
--- NOTE | 2020-06-17 22:50 | DCINST_ITS ---
Discharge Diet: No Restrictions Discharge Activity: Return to Normal Activity, May not drive while taking narcotic pain medications., May Shower May resume sexual activity in: 4-6 weeks Call your doctor if your incision/area has: Continuous Slow Oozing, Sudden Increased Bleeding, Increased Pain/ Swelling, Increased Redness, Foul Smelling Discharge Additional Instructions: If you experience any of the following, contact your healthcare provider. * Bleeding that soaks a pad every hour for 2 hours * Fever 100.4 or higher * Unrelieved incision or abdominal pain * Swelling, redness, discharge or bleeding from your incision or episiotomy site * Your incision begins to separate * Problems urinating (including inability to urinate or burning while urinating). * Visual changes * Severe headache * Flu-like symptoms * Pain or redness in one of both of your breasts * Pain, warmth, tenderness or swelling in your legs, especially the calf area * Frequent nausea and vomiting * Symptoms of depression or anxiety If you experience any of the following, call 911 or go to the nearest Emergency Room. * Chest pain * Problems breathing * Seizure activity * Partial or complete paralysis of a body part, slurred speech, weakness or drooping of the face, or a sudden inability to walk or hold your balance Allergies/Adverse Reactions: Allergies amoxicillin Allergy (Verified 06/17/20 08:01) Rash Penicillins Allergy (Verified 06/17/20 08:01) Rash Medications to take at Discharge ,[id number] 27 mg-folic acid 1 mg-DSS 50 mg-dha 250 mg capsule 1 cap PO DAILY cap 12/17/19 blood sugar diagnostic See Rx Instructions .ROUTE .MEDSUPPLY #100 ea 01/16/20 lancets See Rx Instructions .ROUTE .MEDSUPPLY #200 ea 01/16/20 aspirin 81 mg tablet,delayed release 81 mg PO DAILY 04/01/20 Metformin HCl [Glucophage] 500 mg PO BID 06/17/20 Naproxen [Naprosyn] 250 - 500 mg PO Q8H PRN PRN #30 tab 06/17/20 The following prescriptions were given: Naproxen [Naprosyn] 250 - 500 mg PO Q8H PRN PRN #30 tab PRN Reason: MILD PAIN Transmission Status: Pending to [facility]69 Please Follow Up With: Adelina Vallejo MD - [phone] When: Call to make an appointment with your doctor in 6 weeks. If you had elevated Blood pressure or 4th degree laceration you will need to be seen in 2 weeks. Primary Care Physician: Joe Garcia MD [Primary Care Provider] - Test Results: Test results from this visit will be discussed in further detail at your follow- up appointment, if applicable.
[2020-06-18 01:07] VITALS: BP 127/69; PULSE 83; RESP 16; TEMP 36.6
[2020-06-18 04:19] VITALS: BP 112/68; PULSE 68; RESP 16; TEMP 36.4
[2020-06-18 06:07] LABS: Bedside Glucose 77 mg/dL (70-110)
[2020-06-18 07:35] VITALS: BP 117/66; PULSE 74; RESP 16; TEMP 36.5
[2020-06-18] MEDS: Senna/Docusate Sodium 1 Tablet PO (07:45)
[2020-06-18] MEDS: Naproxen 250 MG Tablet 500 MG PO (07:45)
--- NOTE | 2020-06-18 09:07 | PCM.PN.OB ---
Patient Problems: Active and Suspected Problems (Last Reviewed 06/15/20 @ 15:43 by Ema Lehman) Encounter for induction of labor (Acute) 36 weeks gestation of (Acute) GBS negative. electronic covid test ordered 05/28/20 (scheduled for 06/11/20 at 1410) (Acute) anatomy normal repeat 2 wks for addtl views, repeat nl Supervision of high risk , antepartum (Acute) PRR HAVEN 06/22/20 Boy! [facility] Radha/Ryan/Mae Spouse [place] Infertility (Acute) Clomid and HCG Gestational diabetes mellitus (Acute) With all 3 pregnancies. Early 1h GCT abnormal. Elects to be treated as GDM - doesn't tolerate 3h GCT. Controlled on metformin 500mg BID last . Declines endo - desires metformin unless worsening control. Ordered 500 BID 02/10. Plan NST 2x/wk and q4 growths at 32 weeks. Delivery by 39 weeks. Growth US 2/5 EFW 60% Gestational hypertension (Acute) In last . BP elevated at new OB, but reports white coat hypertension. 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 Will keep home BP log. NL growth 2/5 Blood type, Rh negative (Acute) A neg Rh0gam at 28 weeks BMI 37.0-37.9, adult (Acute) Subjective: Patient doing well without complaints. Tolerating PO. Ambulating and voiding without difficulty. Breast feeding well. Denies chest pain, shortness of breath, calf pain/swelling, fevers, chills, lightheadedness. - Physical Exam Vitals/I&O's: Vital Signs Temp Pulse Resp BP Pulse Ox 97.7 F L 74 16 117/66 100 06/18/20 07:35 06/18/20 07:35 06/18/20 07:35 06/18/20 07:35 06/17/20 17:03 Oxygen Delivery Method Room Air Weight: 232 lb 5.875 oz Body Mass Index (BMI) 34.3 Intake and Output for Last 24 Hours 06/16/20 06/17/20 06/18/20 23:59 23:59 23:59 Intake Total 2054.06 / 2054.06 Output Total 1250 / 1250 Balance 804.06 / 804.06 General: Alert, Oriented x3, Cooperative, No apparent distress, Well developed, Well nourished HEENT: Atraumatic, PERRLA, EOMI, Normocephalic Neck: Supple, No JVD Lungs: Normal air movement Cardiovascular: Regular rate Abdomen: Soft, Non Tender, Non-Distended, - - fundus firm Extremities: No edema, No Calf Tenderness Neurological: Cranial nerves II-XII grossly intact, Neuro grossly intact Psych/Mental Status: Normal Affect, Appropriate Laboratory Results 06/17/20 07:45: Blood Type A NEGATIVE, Antibody Screen NEGATIVE 06/17/20 09:41: POC Glucose 84 06/17/20 13:35: POC Glucose 66 L 06/17/20 14:33: POC Glucose 80 06/17/20 15:56: POC Glucose 78 06/18/20 06:01: POC Glucose 77 Current Medications Acetaminophen (Acetaminophen 500 Mg Tablet) 1,000 mg PO Q8H PRN PRN PRN Reason: Pain Score 1-3 Bisacodyl (Bisacodyl 10 Mg Suppository) 10 mg RC UD PRN PRN Reason: If no BM Dibucaine (Dibucaine 30 Gm Tube) 1 applic TOPICAL TID PRN PRN; Protocol PRN Reason: Discomfort Hydrocortisone (Hydrocortisone 2.5% Crm) 1 applic TOPICAL TID PRN PRN; Protocol PRN Reason: Discomfort Methylergonovine Maleate (Methylergonovine 0.2 Mg/Ml Ampul) 0.2 mg IM X1 PRN PRN Reason: Excess bleeding/uterine atony Naproxen (Naproxen 250 Mg Tablet) 500 mg PO Q8H PRN PRN PRN Reason: Pain Score 1-3 Last Admin: 06/18/20 07:45 Dose: 500 mg Documented by: Ondansetron HCl (Ondansetron 4 Mg/2 Ml Vial) 4 mg IV Q4H PRN PRN PRN Reason: Nausea Oxycodone HCl (Oxycodone 5 Mg Tablet) 5 - 10 mg PO Q4H PRN PRN PRN Reason: Pain Score 4-10 Senna/Docusate Sodium (Senna/Docusate Sodium 1 Tablet) 1 - 2 tablet PO DAILY PRN PRN PRN Reason: Constipation Last Admin: 06/18/20 07:45 Dose: 2 tablet Documented by: Simethicone (Simethicone 80 Mg Tablet) 80 mg PO PCHS PRN PRN Reason: Indigestion/Stomach pain Sodium Chloride (0.9% Saline Lock 10 Ml Syringe) 5 - 15 ml IV UD PRN PRN Reason: SALINE FLUSH Last Admin: 06/17/20 17:08 Dose: 10 ml Documented by: Medical Necessity - Tobacco Use Smoking Status: Never smoker Assessment/Plan All Active Problems (Last Reviewed 06/15/20 @ 15:43 by Ema Lehman) Encounter for induction of labor (Acute) 36 weeks gestation of (Acute) (Acute) Supervision of high risk , antepartum (Acute) Infertility (Acute) Gestational diabetes mellitus (Acute) Gestational hypertension (Acute) Blood type, Rh negative (Acute) BMI 37.0-37.9, adult (Acute) Encounter for prophylactic administration of RhoGAM (Resolved) History of tetanus, diphtheria, and acellular pertussis booster vaccination (Tdap) (Resolved) Influenza vaccination declined (Resolved) s/p PPD # 1 1. routine post delivery care 2. breast feeding- support given 3. rh negative 4. rubella immune 5. GDM - takes metformin outside of , will continue on discharge
[2020-06-18 15:47] VITALS: BP 128/86; PULSE 66; RESP 14; TEMP 36.7
== END 2020-06-18 18:25 | disposition home or self-care (01) | DRG 807 ==
PROVIDERS: Admitting Provider Obstetrics & Gynecology; PCP Family Medicine; Referring Provider Obstetrics & Gynecology; Visit Provider Obstetrics & Gynecology
DX: O13.4 Gestational [pregnancy-induced] hypertension without significant proteinuria, complicating childbirth (principal); Z37.0 Single live birth; O24.429 Gestational diabetes mellitus in childbirth, unspecified control; O69.81X0 Labor and delivery complicated by cord around neck, without compression, not applicable or unspecified; E28.2 Polycystic ovarian syndrome; Z3A.36 36 weeks gestation of pregnancy; Z67.91 Unspecified blood type, Rh negative; Z3A.38 38 weeks gestation of pregnancy
CPT/HCPCS: 59025; 59050; 82962; 85025; 86850; 86900; 86901; 99218; J7120; A4216; G0378

== ENCOUNTER → 2020-08-03 | Outpatient (CLI) | payer OTHER, SELFPAY ==
[2020-08-03 14:50] VITALS: BMI 34.3
[2020-08-09 12:51] LABS: HPV APTIMA, High Risk Negative (Negative)
== END | disposition home or self-care (01) ==
LOC: LABSPEC 17:07
PROVIDERS: PCP Family Medicine; Referring Provider Obstetrics & Gynecology; Visit Provider Obstetrics & Gynecology
DX: Z12.4 Encounter for screening for malignant neoplasm of cervix (principal)
CPT/HCPCS: 87624; 88175; G0145

== ENCOUNTER 2021-09-13 13:52 | Day surgery (SDC) | payer OTHER, SELFPAY ==
[2021-09-13] VITALS (7 sets, daily range): BP systolic 110–140; BP diastolic 63–88; PULSE 59–88; RESP 14–18; TEMP 36.3–37.1; O2SAT 96–100; BMI 32.8
--- NOTE | 2021-09-13 07:43 | HP.PCM_ITS ---
History and Physical Intake Visit Reasons:?preop BS Chief Complaint: pre op lap bs Supervisor Heading Required: No Is patient in pain?: No Allergies amoxicillin Allergy (Verified 08/03/20 14:40) RashPenicillins Allergy (Verified 08/03/20 14:40) Rash Medications ,wey03-sncc 27 mg-folic acid 1 mg-DSS 50 mg-dha 250 mg capsule 1 cap PO DAILY? cap 12/17/19 [History Confirmed 07/19/21] metformin 500 mg tablet 500 mg PO BID #180 tab 08/04/21 [Rx] Is last menstrual period known: No Post menopausal: No Patient : No : No PFSH Medical History? Blood type, Rh negative BMI 37.0-37.9, adult PCOS (polycystic ovarian syndrome) Surgical History? S/P wisdom tooth extraction Family History? Grandfather DiabetesAunt DiabetesFather Hypothyroidism Social History? Smoking Status:? Never smoker alcohol intake:? never substance use type:? does not use caffeine:? No what type of physical activity do you participate in:? none seatbelt use:? always do you feel safe at home:? Yes additional social history:? [employer]? Patient is RN at [employer]? ? HPI preop BS Details: KURT GARCIA is a 31 year old who presents for preop visit for laparosocpic BS for sterilization. Female Reproductive History Menopausal Symptoms: No night sweats Pregancy History ? ? ? 4 ? Elective abortions ? Hx Para ? ? ? 4 ? Spontaneous abortions ? Hx # Term Pregnancies ? Ectopic pregnancies ? Hx # Pregnancies ? Multiple births ? # of living children ? ? ? 4 Past Pregnancies Del. Date Name GA/Weeks Outcome Route Bth Weight Gen Labor Lgth Anesthesia Del Locatn Provider FOB 08/14/14 Radha 39 live - full term 8lbs 1oz Fema le [address] Flor Nice 07/12/16 Ryan 39 live - full term 7lbs 14oz Male 1 [address] Tomer Nice 04/10/18 Mae 39 live - full term 8lbs 1oz Female 4 8 minutes epidural [facility] Dr. Tomer Nice 06/17/20 Aravind 39 live - full term 9lbs 3oz Male ? ? [facility] Ebanthony ? Delivery Date: 08/14/14 Gestational diabetes [place] Delivery Date: 07/12/16 Gestational diabetes [place] Delivery Date: 04/10/18 Gestational diabetes, infant had low blood pressure [place] Delivery Date: 06/17/20 IOL GDMA2 Alexandria Diaz Const Constitutional: Denies fatigue, night sweats, weight gain or weight loss ENT ENT: Reports system reviewed and no additional complaints, except as documented Cardio Card: Denies chest pain Resp Resp: Denies cough or dyspnea GI GI: Reports as per HPI; Denies abdominal pain, constipation, nausea or vomiting : Denies nipple discharge, urinary frequency, urinary incontinence, urinary hesitancy, urinary urgency, vaginal discharge, vaginal dryness, vaginal odor or vaginal pruritus Musc Musc: Denies arthralgias, back pain or muscle weakness Skin Skin/Breast: Denies alopecia, change in hair, dry skin, breast mass, breast pain, breast skin changes or nipple discharge Neuro Neuro: Reports system reviewed and no additional complaints, except as documented Psych Psych: Reports system reviewed and no additional complaints, except as documented Endo Endo: Denies cold intolerance, excessive sweating, heat intolerance or polydipsia Abdifatah/Lymph Hematologic/Lymphatic: Denies easy bleeding, Denies easy bruising and Denies lymphadenopathy Exam Const General: cooperative, healthy appearing, comfortable, no acute distress and well developed Orientation: alert [facility] Head: normal to inspection and normocephalic Ears: hearing grossly normal bilaterally and external ears normal Nose: external nose normal and nares normal Face and sinus: normal facial exam Neck Neck: normal visual inspection and no lymphadenopathy Thyroid: thyroid normal Chest Chest palpation & inspection: normal inspection of the chest Resp Effort & Inspection: normal respiratory effort Auscultation: clear to auscultation bilaterally Cardio Rate: regular rate Rhythm: regular rhythm Heart Sounds: S1 normal and S2 normal GI Inspection: normal to inspection and non-distended Palpation: soft and no hepatosplenomegaly Musc Other: gross motor intact no deficits, full bilateral strength Skin General: no rashes or lesions noted Neuro General: patient alert, patient awake, moves all extremities and no focal motor deficits Motor: muscle tone normal throughout Extrem General: normal to inspection and no pedal edema Psych Appearance: grossly normal Mental Status: mental status grossly normal Affect: normal affect Speech and Movement: speech and movement normal Coding Level of Care Code No Charge Diagnoses Encounter for sterilization? Z30.2 Assessment and Plan Assessment and Plan (1) Encounter for sterilization: ?Status:?Acute ?Comment: plan laparoscopic bilateral salpingectomy ?Plan - Dr. Adelina Vallejo MD: After discussing the patient's diagnosis and treatment plan options, patient wishes to proceed with surgical management.? I have discussed with the patient the risks, benefits, and alternatives of the procedure which include but are not limited to risks of anesthesia, bleeding, infection, possible damage to bowel, bladder, or surrounding vasculature which could lead to additional surgery to evaluate any complications.? Patient agrees to procedure and wishes to proceed.? ACOG/uptodate references given for additional information regarding procedure.? UPDATE- I have seen the patient and performed any clinically relevant updates to the history and physical exam. Adelina Vallejo MD
[2021-09-13] MEDS: Lactated Ringers 1,000 ML 125 ML IV (14:44)
[2021-09-13 14:57] LABS: Absolute Lymphocyte Count 1.75 X10^3/uL (0.83-4.51); Absolute Neutrophil Count 6.2 X10^3/uL (2.0-7.7); Basophil# 0.02 X10^3/uL; Basophil% 0.2 % (0-1); Eosinophil# 0.06 X10^3/uL; Eosinophils% 0.7 % (0-5); Hematocrit 38.7 % (37-47); Hemoglobin 12.8 g/dL (12.0-15.0); Lymphocyte # 1.75 X10^3/ul (0.83-4.51); Lymphocyte % 20.8 % (19-41); Mean Corp Hgb Conc 33.1 g/dL (32-36); Mean Corpuscular Hgb 27.7 pg (27.0-32.0); Mean Corpuscular Volume 83.8 fL (81-99); Mean Platelet Vol. 9.2 fl (6.2-12.0); Monocyte# 0.36 X10^3/uL; Monocyte% 4.3 % (0-10); NRBC Flagged by Analyzer 0 % (0-5); Neutrophil # 6.21 X10^3/uL (2.7-7.7); Neutrophil % 73.6 % (47-70); Platelet Count 311 K/mm3 (150-450); RBC Distribution Width CV 12.5 % (11.6-14.6); RBC Distribution Width SD 37.9 fl (35.1-43.9); Red Blood Count 4.62 M/mm3 (4.2-5.4); White Blood Count 8.4 K/mm3 (4.4-11.0)
[2021-09-13 15:11] LABS: Internal QC Validated? YES +Cl - CLEAR BKGD; Pregnancy, Urine Negative Negative
--- NOTE | 2021-09-13 15:20 | FALS_PTH ---
PATIENT: KURT GARCIA LOC: [facility] – [place] U#:[id number] AGE/SX: 31/F ROOM: RE09/13/[address]: Dr. Adelina Vallejo MD : 1990 BED: DIS: 09/13/2021 SPEC #: [id number] RECD: 09/14/21 06:47 STATUS: FRANCO REBeth #: [id number] JAY: 09/13/21 15:[address]: Adelina Vallejo DEPT: SURGICAL PATHOLOGY RECD BY: Marisa Boateng ENTERED: 09/14/21 08:09 SP TYPE: FALL TUBES OTHR DR: Dr. Joe Garcia MD Tissues: Fallopian tube Procedures: Surgery Specimen Level II HEADER OPERATION: Laparoscopic salpingectomy, bilateral PRE-OP DIAGNOSIS: Sterilization TISSUE SUBMITTED: Bilateral fallopian tubes MICROSCOPIC DIAGNOSIS Right and left fallopian tubes, bilateral salpingectomies: Two complete segments of fallopian tubes with no pathologic change. AM:evangelist 09/15/2021 MICROSCOPIC DESCRIPTION Slides are reviewed. GROSS DESCRIPTION Received in fixative is one container labeled with the patient's name and designated bilateral fallopian tubes. The specimen consists of two fallopian tubes with an average length of 7 cm and has an average diameter of 0.7 cm. Both fallopian tubes have normal fimbriated ends. No mass lesions are identified. Book Or Script Editor sections are submitted in two cassettes as follows: 1 - one fallopian tube, 2 - the other fallopian tube. / AM:evangelist 09/14/2021 TC:4 CPT: 41968 x2
--- NOTE | 2021-09-13 15:59 | OP.PCM_ITS ---
Report of Operation Pre-Operative Diagnosis: see problem list Post-Operative Diagnosis: same Surgery/Procedure Performed:: laparoscopic bilateral salpingectomy Description of Surgical Findings:: nl uterus tubes ovaries Surgeon: Adelina Vallejo grader tender: None ([place]) Type of Anesthesia: General and Local Specimen's removed: tubes Drains: none Estimated Blood Loss (mL): 50 Fluids Replaced: crystalloid Description of Procedure: Patient was taken in the operating room and was placed under general anesthesia was prepped and draped in normal sterile fashion in the dorsal lithotomy position. Bladder was drained of clear urine and SCDs were on preoperatively. Uterus was sounded and a uterine manipulator was placed after dilating. Attention was then paid to the abdominal portion of the procedure and the umbilicus was elevated with towel clamps and injected with Marcaine and after a 5 mm incision was made and the Veress needle was entered into the abdomen confirmed to be intra-abdominal with a low opening pressure of less than 5 mmHg. Abdomen was insufflated with CO2 gas and a 5 mm optical trocar was placed under direct visualization. A 5 mm port suprapubically was placed under direct visualization. Uterus was well visualized and bilateral fallopian tubes identified and bilateral tubes were elevated and transecting across the mesosalpinx and the attachment to the uterine corpus bilaterally the tubes were removed without complication. Excellent hemostasis was noted. Fallopian tubes were removed through the lower port site without complication. Liver and upper abdomen were visualized notably within normal limits and no other gross abnormalities were seen in the abdomen. All instruments removed from the abdomen after gas was desufflated. Port sites were closed with 3-0 Monocryl Steri's and op sites were applied. All instruments removed from the vagina and patient was awoken and taken recovery in stable condition. Grafts/Implants Used: none Complications none Admit VTE Documentation VTE Present on Admission: No VTE Mechan Device Prophylaxis: SCD's Multi Select Codes Urinary/Genital Urinary/Genital CPT Codes: 87028 Laproscopic BS/O
--- NOTE | 2021-09-13 16:00 | DCINST_ITS ---
Discharge Instructions Diet Discharge Diet: No restrictions Activity Discharge Activity: Return to Normal Activity, May Drive (when pain free) and May Shower May resume sexual activity in: 1 week Weight Bearing Status: Full weight bearing Lifting Restrictions: 30 lbs for 2 weeks Dressing / Incision Call your doctor if your incision/area has: Continuous Slow Oozing, Sudden Increased Bleeding, Increased Pain/ Swelling, Increased Redness and Foul Smelling Discharge Call your doctor if you observe: Fever of 101 or Higher, Using more than 1 pad per hour, Shortness of breath, Chest pain and Uncontrolled pain Suture Line Care: Avoid Pulling/Pushing and Avoid Pinching/Bending Remove Dressing in: 1 week (if present) Cleanse incision/area with: Soap & Water and Keep Dressing Clean & Dry Follow Up Care Please Follow Up With: Adelina Vallejo MD When: Call to make an appointment with your doctor for a postop visit in 2 weeks Test Results: Test results from this visit will be discussed in further detail at your follow- up appointment, if applicable. Discharge Plan Admission Attending Provider: Adelina Vallejo Primary Care Provider: Joe Garcia Discharge Orders/Prescriptions Prescriptions: New oxycodone-acetaminophen [Percocet] 5-325 mg tablet 1 tab PO Q6H PRN (Reason: pain) 7 Days Qty: 10 0RF naproxen [naproxen] 500 mg tablet 500 mg PO BID PRN PRN (Reason: Pain) Qty: 30 1RF No Action metformin 500 mg tablet 500 mg PO BID Qty: 180 6RF Referrals / Follow Up: Joe Garcia MD [Primary Care Provider] - Disposition Disposition (needs filled in before D/C Order can be placed): Home, Self Care
[2021-09-13] MEDS: Bupivacaine Mpf 0.5% 30 ML VIAL (16:30)
== END 2021-09-13 18:37 | disposition home or self-care (01) ==
LOC: SDC 13:54 → AC 13:56
PROVIDERS: PCP Family Medicine; Referring Provider Obstetrics & Gynecology; Visit Provider Obstetrics & Gynecology
PROC: (CPT 58661; principal; 2021-09-13 15:05)
DX: Z30.2 Encounter for sterilization (principal); Z67.91 Unspecified blood type, Rh negative; E28.2 Polycystic ovarian syndrome
CPT/HCPCS: 58661; 00840; 81025; 85025; 86850; 86900; 86901; 88302; J7120; J2405

== ENCOUNTER → 2024-08-18 | Outpatient (CLI) | payer OTHER, SELFPAY ==
[2024-08-18 06:31] LABS: Absolute Lymphocyte Count 2.52 X10^3/uL (0.83-4.51); Absolute Neutrophil Count 5.9 X10^3/uL (2.0-7.7); Basophil# 0.03 X10^3/uL; Basophil% 0.3 % (0-1); Eosinophil# 0.19 X10^3/uL; Eosinophils% 2.1 % (0-5); Hemoglobin 13.3 g/dL (12.0-15.0); Lymphocyte # 2.52 X10^3/ul (0.83-4.51); Lymphocyte % 27.7 % (19-41); Mean Corp Hgb Conc 32.4 g/dL (32-36); Mean Corpuscular Hgb 27.3 pg (27.0-32.0); Mean Platelet Vol. 8.8 fl (6.2-12.0); Monocyte# 0.46 X10^3/uL; Monocyte% 5.1 % (0-10); NRBC Flagged by Analyzer 0 % (0-5); Neutrophil # 5.86 X10^3/uL (2.7-7.7); Neutrophil % 64.4 % (47-70); Platelet Count 332 K/mm3 (150-450); RBC Distribution Width CV 13.2 % (11.6-14.6); RBC Distribution Width SD 40.5 fl (35.1-43.9); Red Blood Count 4.88 M/mm3 (4.2-5.4); White Blood Count 9.1 K/mm3 (4.4-11.0)
== END | disposition home or self-care (01) ==
LOC: LAB 06:02
PROVIDERS: Visit Provider Obstetrics & Gynecology
DX: N93.9 Abnormal uterine and vaginal bleeding, unspecified (principal)
CPT/HCPCS: 36415; 84443; 85025

== ENCOUNTER → 2024-08-20 | Outpatient (CLI) | payer OTHER, SELFPAY ==
--- NOTE | 2024-08-20 07:36 | US_ITS ---
PROCEDURE: PELVIC W/ TRANSVAGINAL 08/20/2024 REASON FOR EXAM: AUB TECHNIQUE: Transabdominal pelvic ultrasound COMPARISON: None FINDINGS: Measurements: Uterus: 9.6 cm x 8.4 cm x 6 cm with a volume of 250.88 mL Endometrial Thickness: 22 mm. Endometrium is thickened. Right Ovary: 3.8 cm x 2.6 x 2.9 cm with a volume of 15.31 mL. Left Ovary: 3.2 cm x 2.8 cm x 2.6 cm with a volume of 12.32 mL. Uterus: Normal size, myometrial echotexture, and contour. Endometrium: Homogeneously thickened. Right ovary: Normal size and echotexture. Left ovary: Normal size and echotexture. Other: No large pelvic mass identified. US/Pelvic w/ Transvaginal IMPRESSION: Endometrial thickening. Clinical correlation recommended. Reading Location: [id number]
== END | disposition home or self-care (01) ==
PROVIDERS: Referring Provider Obstetrics & Gynecology; Visit Provider Obstetrics & Gynecology
DX: N93.9 Abnormal uterine and vaginal bleeding, unspecified (principal)
CPT/HCPCS: 76830; 76856

== ENCOUNTER 2024-10-07 13:34 | Day surgery (SDC) | payer OTHER, SELFPAY ==
[2024-10-07] VITALS (8 sets, daily range): BP systolic 136–156; BP diastolic 81–98; PULSE 81–102; RESP 16–20; TEMP 36.2–36.8; O2SAT 94–97; BMI 33.8
--- NOTE | 2024-10-07 12:19 | HP.PCM_ITS ---
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: No Is patient in pain?: No Allergies amoxicillin Allergy (Verified 09/24/24 13:08) RashPenicillins Allergy (Verified 09/24/24 13:08) Rash Medications ?Medication ?Instructions ?Recorded ?Confirmed ?Type NK 09/24/24 09/24/24 History Is last menstrual period known: No Post menopausal: No Patient : No : No PFSH Medical History Wears glasses Non-smoker Encounter for sterilization PCOS (polycystic ovarian syndrome) BMI 37.0-37.9, adult Gestational hypertension Gestational diabetes mellitus Surgical History Status post bilateral salpingectomy Hx of tonsillectomy History of hysteroscopy S/P wisdom tooth extraction Family History Grandfather DiabetesAunt DiabetesFather Hypothyroidism Social History number of children: 4 current occupational status: employed current occupation: [employer] Smoking Status: Never smoker alcohol intake: never substance use type: does not use caffeine: No what type of physical activity do you participate in: none seatbelt use: always do you feel safe at home: Yes additional social history: -[place] 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 she has had heavy bleeding for the last 14 weeks on and off. she has a history polyps and PCOS< and mesnes have been regular the last 3 year sand then they ust started heavy irregular bleeding now. Nothing else has been different no ifection symptoms no fever pain discharge pressure. nl cbc and tsh. History 4 Elective abortions Hx Para 4 Spontaneous abortions Hx # Term Pregnancies Ectopic pregnancies Hx # Pregnancies Multiple births # of living children 4 Past Pregnancies Del. Date Name GA/Weeks Outcome Route Bth Weight Gen Labor Lgth Anesthesia Del Locatn Provider FOB 08/14/14 Radha 39 live - full term 8lbs 1oz Fema le [address] Flor Nice 07/12/16 Ryan 39 live - full term 7lbs 14oz Male 1 [address] Tomer Nice 04/10/18 Mae 39 live - full term 8lbs 1oz Female 4 8 minutes epidural [facility] Dr. Tomer Nice 06/17/20 Aravind 39 live - full term 9lbs 3oz Male [facility] Marcanthony Delivery Date: 08/14/14 Last Updated by: Selina Hoffman Gestational diabetes Delivery Date: 07/12/16 Last Updated by: Selina Hoffman Gestational diabetes Delivery Date: 04/10/18 Last Updated by: Selina Hoffman Gestational diabetes, had low blood pressure Delivery Date: 06/17/20 Last Updated by: Alexandria Vaughn IOL GDMA2 ROS Const Constitutional: Denies fatigue, fever(s), headache(s), increased appetite, poor appetite, weight gain or weight loss ENT ENT: Reports system reviewed and no additional complaints, except as documented Cardio Card: Denies chest pain Resp Resp: Denies cough or dyspnea GI GI: Reports as per HPI; Denies abdominal pain, constipation, nausea or vomiting : Reports as per HPI; Denies difficulty voiding, dysuria, hematuria, nipple discharge, pelvic pain, urinary frequency, urinary incontinence, urinary hesitancy, urinary urgency, vaginal discharge, vaginal dryness, vaginal odor, vaginal pruritus or other Musc Musc: Denies arthralgias, back pain or muscle weakness Skin Skin/Breast: Denies alopecia, change in hair, dry skin, breast mass, breast pain, breast skin changes or nipple discharge Neuro Neuro: Reports system reviewed and no additional complaints, except as documented Psych Psych: Reports system reviewed and no additional complaints, except as documented Endo Endo: Denies cold intolerance, excessive sweating, heat intolerance or polydipsia Abdifatah/Lymph Hematologic/Lymphatic: Denies easy bleeding, Denies easy bruising and Denies lymphadenopathy Exam Const General: cooperative, healthy appearing, comfortable, no acute distress and well developed Orientation: alert HENMT Head: normal to inspection and normocephalic Ears: hearing grossly normal bilaterally and external ears normal Nose: external nose normal and nares normal Face and sinus: normal facial exam Neck Neck: normal visual inspection, no lymphadenopathy and trachea midline Thyroid: thyroid normal Chest Chest palpation & inspection: normal inspection of the chest Resp Effort & Inspection: normal respiratory effort Auscultation: clear to auscultation bilaterally Cardio Rate: regular rate Rhythm: regular rhythm Heart Sounds: S1 normal and S2 normal GI Inspection: normal to inspection and non-distended Palpation: soft and no hepatosplenomegaly Musc Other: gross motor intact no deficits, full bilateral strength Skin General: no rashes or lesions noted Neuro General: patient alert, patient awake, moves all extremities and no focal motor deficits Motor: muscle tone normal throughout Extrem General: normal to inspection and no pedal edema Psych Appearance: grossly normal Mental Status: mental status grossly normal Affect: normal affect Speech and Movement: speech and movement normal Coding Level of Care Code No Charge Diagnoses Abnormal uterine bleeding N93.9 PCOS (polycystic ovarian syndrome) E28.2 Assessment and Plan Assessment and Plan (1) Abnormal uterine bleeding: Status: Acute Comment: polyps in past,nl cbc tsh thickened endometrium on US recommend d and c hysteroscopy possible symphion (2) PCOS (polycystic ovarian syndrome): Status: Chronic Plan After discussing the patient's diagnosis and treatment plan options, patient wishes to proceed with surgical management. I have discussed with the patient the risks, benefits, and alternatives of the procedure which include but are not limited to risks of anesthesia, bleeding, infection, possible damage to bowel, bladder, or surrounding vasculature which could lead to additional surgery to evaluate any complications. Patient agrees to procedure and wishes to proceed. ACOG/uptodate references given for additional information regarding procedure. UPDATE- I have seen the patient and performed any clinically relevant updates to the history and physical exam. Adelina Vallejo MD
[2024-10-07 13:57] LABS: Internal QC Validated? YES +Cl - CLEAR BKGD; Pregnancy, Urine Negative Negative; Record Kit Lot#,Urine Preg 962302
[2024-10-07] MEDS: Lactated Ringers 1,000 ML 15 ML IV (14:13)
[2024-10-07 14:17] LABS: Hematocrit 36.5 % (37-47); Hemoglobin 11.8 g/dL (12.0-15.0); Mean Corp Hgb Conc 32.3 g/dL (32-36); Mean Corpuscular Volume 82.0 fL (81-99); Mean Platelet Vol. 8.8 fl (6.2-12.0); Platelet Count 374 K/mm3 (150-450); RBC Distribution Width CV 12.8 % (11.6-14.6); RBC Distribution Width SD 38.2 fl (35.1-43.9); Red Blood Count 4.45 M/mm3 (4.2-5.4); White Blood Count 10.2 K/mm3 (4.4-11.0)
--- NOTE | 2024-10-07 14:26 | PRE.ANES_ITS ---
ASA Classification* ASA Classification ASA Classification: 2 Assessment & Plan Anesthesia* Anesthesia Assessment Anesthesia Assessment: Discussed sedation and/or anesthesia options, risks, benefits, and alternatives with patient/parents/legal guardian/POA. Questions invited. The patient/parents/legal guardian/POA seems to understand and agrees to proceed with anesthesia plan. Reviewed the physical assessment, medical history, allergy history and patient home medications list prior to surgery/procedure/anesthetic and documented any changes. Performed airway and anesthesia risk assessments. Anesthesia Type Anesthesia Type: MAC (discussed GA as backup) History Source History Obtained from:: Patient and Chart Anesthesia Focused Assessment* Temperature: 98.3 F Pulse Rate: 91 Blood Pressure: 151/98 Respiratory Rate: 16 Pulse Ox: 94 Oxygen Delivery Method: Room Air Airway Assessment Mouth opens: >3 cm Mallampati Score: I Teeth Condition: Intact Neck Range of motion (ROM): Full ROM Labs Anesthesia Preop lab: CBC WBC 10.2 K/mm3 (4.4-11.0) 10/07/24 14:10 10/07/24 RBC 4.45 M/mm3 (4.2-5.4) 10/07/24 14:10 10/07/24 Hgb 11.8 g/dL (12.0-15.0) L 10/07/24 14:10 5 Hct 36.5 % (37-47) L 10/07/24 14:10 10/07/24 Plt Count 374 K/mm3 (150-450) 10/07/24 14:10 10/07/24 CHEMISTRY POC Glucose 77 mg/dL (70-110) 06/18/20 06:01 06/18/20 TSH 1.940 uIU/mL (0.300-4.200) 08/18/24 06:10 07/25 09/17 COAG Urine Test Negative Negative 10/07/24 13:45 10/07/24 Pre-Assessment Diagnosis/Proposed Procedure Planned Operative Procedure(s): Hysteroscopy,D&C possible Symphion Anesthesia History 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 When Was Last Pacemaker Check QUESTION #4 FULL TEXT: You/Your Family Experience fever (hyperthermia) with Anesthesia Last Oral Intake Last Oral intake: Last Oral Intake NPO since 10:00 10/07/24 14:14 Meds taken in AM with sips of No 10/07/24 14:14 water? Meds patient instructed to take am of surgery PONV PONV - mail carrier technician: PONV - mail carrier technician Female Yes 09/25/24 10:48 HX of Motion Sickness Yes 09/25/24 10:48 HX of N/V After Surgery No 09/25/24 10:48 Non-Smoker Yes 09/25/24 10:48 Duration of Surgery greater No 09/25/24 10:48 than 60 minutes Number of Risk Factors 3 09/25/24 10:48 PONV Score Moderate Risk 09/25/24 10:48 Height & Weight Height & Weight: Anesthesia: Height & Weight Height 5 ft 9 in 10/07/24 14:14 Weight: 104 kg 10/07/24 14:14 Body Mass Index (BMI) 33.8 10/07/24 14:14 Respiratory Assessment Respiratory Assessment - mail carrier technician: Respiratory Tract Infection Hx - mail carrier technician Hx Respiratory Tract Infection No 09/25/24 10:48 STOP Sleep Apnea STOP Sleep Apnea - mail carrier technician: STOP Sleep Apnea - mail carrier technician Hx Hypertension No 09/25/24 10:48 Hx Sleep Apnea No 09/25/24 10:48 CPAP No 09/25/24 10:48 BIPAP Do you snore loudly (louder No 09/25/24 10:48 than talking or can be heard Do you often feel tired/ No 09/25/24 10:48 fatigued/ sleepy during daytime? Has anyone observed you stop No 09/25/24 10:48 breathing during sleep? STOP Results Negative 09/25/24 10:48 QUESTION #5 FULL TEXT : Do you snore loudly (louder than talking or can be heard through closed doors)? Tobacco Use History Tobacco Use History - mail carrier technician: Tobacco Use History - mail carrier technician Tobacco Use Smoking Status Never smoker 09/25/24 10:48 Hx Tobacco Use No 09/25/24 10:48 Years Smoking Packs Smoked per Day Smoking Cessation Date was within the last 15 years Hx Smoking Cessation Date Hx Smoking Cessation Counseling Hematologic Medial History Hematologic Hx - mail carrier technician: Hematologic Medical Hx - tire changer Hx of Blood Transfusion No 09/25/24 10:48 Hx of Transfusion in last 3 No 09/25/24 10:48 Months Date of Last Transfusion (if within last 3 months) Ever experience any problems No 09/25/24 10:48 with transfusion(s)? Specify any problems Hx of Preganancy in last 3 No 09/25/24 10:48 Months Nurse Filling Out Transfusion [email or web address] 09/25/24 10:48 & Questions: Date: 09/25/24 09/25/24 10:48 Time: 10:50 09/25/24 10:48 Patient unable to answer at this time (ie. confused, unrespo /Reproduction History /Reproductive History - mail carrier technician: /Reproductive Hx- mail carrier technician Hx Now No 09/25/24 10:48 Gestational Age (in weeks): EDC: Hx Hx Para Hx Section SAB No 09/25/24 10:48 Active Medications Active Medications: Current Medications Generic Name Dose Route Start Last Admin Trade Name Freq PRN Reason Stop Dose Admin Lactated Ringer's 1,000 mls @ 15 mls/hr 10/07/24 14:00 10/07/24 14:13 IV 15 mls/hr .Q48H ANOOP Administration PFSH Medical History Wears glasses Non-smoker Encounter for sterilization PCOS (polycystic ovarian syndrome) BMI 37.0-37.9, adult Gestational hypertension Gestational diabetes mellitus Home Medications ?Medication ?Instructions ?Recorded ?Last Taken ?Type NK 09/24/24 Unknown History Allergy/AdvReac Type Severity Reaction Status Date / Time amoxicillin Allergy Rash Verified 10/07/24 14:12 Penicillins Allergy Rash Verified 10/07/24 14:12 Family History Grandfather Diabetes Aunt Diabetes Father Hypothyroidism Surgical History Status post bilateral salpingectomy Hx of tonsillectomy History of hysteroscopy S/P wisdom tooth extraction Social History number of children: 4 current occupational status: employed current occupation: [employer] Smoking Status: Never smoker alcohol intake: never substance use type: does not use caffeine: No what type of physical activity do you participate in: none seatbelt use: always do you feel safe at home: Yes additional social history: -[place] Patient is RN at [employer] Review of Systems (Anesthesia) ROS Narrative System reviewed and no additional complaints, except as documented. Physical Exam Const alert and oriented x3 HEENT dentition normal Neck full ROM Resp normal respiratory effort Cardio regular rate Neuro oriented x3 and moves all extremities
--- NOTE | 2024-10-07 15:04 | OP.PCM_ITS ---
Problems Associated Problem List Diagnoses (1) Abnormal uterine bleeding: Multi Select Codes Urinary/Genital Urinary/Genital CPT Codes: 26080 Hysteroscopy,EMC, Polypectomy Operative Report (Standard) Operative Information Date of Procedure: 10/07/24 Pre-Operative Diagnosis: see problem list details Post-Operative Diagnosis: same Surgery/Procedure Performed: dilation and curettage hysteroscopy symphion polypectomy detasseler: No Type of Anesthesia: IV Sedation RN Documented Start/Stop Times: Operation Date: 10/07/24 15:15 Case Time Into Pre-Op 10/07/24 13:42 Select all DRAINS/GRAFTS/IMPLANTS that apply: None Estimated Blood Loss: 25 Specimen collected: Yes Description of specimen(s) removed: endometrial curretings and polyp Description of surgery: Patient was prepped and draped in a normal sterile fashion under MAC anesthesia. A weighted speculum was placed in the vagina and the anterior lip of the cervix was grasped with a single-tooth tenaculum. A paracervical block was placed with 1% lidocaine. Cervix was progressively dilated to allow passage of a 5 mm hysteroscope. The lining was fully visualized and noted to have[ ] . Uterine sounded to [ ] cm. Using the symphion device, the [ ] was progressively removed without complications. Direct visual curettage was performed using the device , and all specimens were sent to pathology. All instruments were removed from the vagina and excellent hemostasis was noted. Patient was awoken and taken to recovery in stable condition. Complications Complications: No
--- NOTE | 2024-10-07 15:04 | PCM.OPRPT ---
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 Type of Anesthesia: IV Sedation RN Documented Start/Stop Times: Operation Date: 10/07/24 15:15 Case Time Into Pre-Op 10/07/24 13:42 Anesthesia Start 10/07/24 15:31 Into Room 10/07/24 15:31 Procedure Start 10/07/24 15:51 Procedure End 10/07/24 15:59 Anesthesia End 10/07/24 16:04 Out of Room 10/07/24 16:04 Procedure Start Time: 15:51 Procedure Stop Time: 15:59 Select all DRAINS/GRAFTS/IMPLANTS that apply: None Estimated Blood Loss: 25 Specimen collected: Yes Description of specimen(s) removed: endometrial curretings and polyp Description of surgery: Patient was prepped and draped in a normal sterile fashion under MAC anesthesia. A weighted speculum was placed in the vagina and the anterior lip of the cervix was grasped with a single-tooth tenaculum. A paracervical block was placed with 1% lidocaine. Cervix was progressively dilated to allow passage of a 5 mm hysteroscope. The lining was fully visualized and noted to have thickened endometrium . Uterine sounded to 8 cm. curettage performed without complication tissue removed sent to pathology. All instruments were removed from the vagina and excellent hemostasis was noted. Patient was awoken and taken to recovery in stable condition. Surgical Findings: thickened lining Complications Complications: No
--- NOTE | 2024-10-07 15:05 | PCM.DC ---
Discharge Instructions DC O2, CPAP, BIPAP needs Home O2 Discharge instructions: No Dressing / Incision Discharge Activity: Return to Normal Activity, May Shower and May Take a Tub Bath (after 1 week) May resume sexual activity in: 1-2 weeks Weight Bearing Status: Weight bearing as tolerated Lifting Restrictions: none Dressing / Incision Call your doctor if you observe: Fever of 101 or Higher, Using more than 1 pad per hour, Shortness of breath and Uncontrolled pain Follow Up Care Please Follow Up With: Adelina Vallejo MD When: Call [phone] to schedule appointment. Test Results: Test results from this visit will be discussed in further detail at your follow-up appointment, if applicable. Discharge Plan Admission Attending Provider: Adelina Vallejo Primary Care Provider: Care Physician,No Primary Instructions Print Language: Slovenian Discharge Orders/Prescriptions Prescriptions: No Action NK Referrals / Follow Up: Care Physician,No Primary [Primary Care Provider] - Disposition Disposition (needs filled in before D/C Order can be placed): Home, Self Care
--- NOTE | 2024-10-07 15:15 | EMB_PTH ---
PATIENT: KURT GARCIA LOC: [facility] U#:[id number] AGE/SX: 34/F ROOM: RE10/07/[address]: Dr. Adelina Vallejo MD : 1990 BED: DIS: 10/07/2024 SPEC #: [id number] RECD: 10/07/24 16:31 STATUS: FRANCO REBeth #: [id number] JAY: 10/07/24 15:[address]: Adelina Vallejo DEPT: SURGICAL PATHOLOGY RECD BY: Jose Black ENTERED: 10/08/24 09:00 SP TYPE: ENDOM BX/C ELIZABETH DR: No Primary Care Phys Tissues: A - Endometrium, NOS Procedures: Surgery Specimen Level IV HEADER OPERATION: Hysteroscopy, D&C PRE-OP DIAGNOSIS: Abnormal uterine bleeding, PCOS TISSUE SUBMITTED: A- Endometrial curettings MICROSCOPIC DIAGNOSIS A. Endometrium, hysteroscopy and dilation and curettage: * Proliferative endometrium with occasional polyp formation * Benign squamous epithelium MICROSCOPIC DESCRIPTION Slides are reviewed. GROSS DESCRIPTION Received in formalin labeled with the patient's name and date of . Designated as endometrial curettings is a 2.2 x 2.1 x 0.2 cm aggregate of garcia-pink to red tissue. Entirely submitted in 1 cassette. IN 10/08/2024 CPT:[id number]
[2024-10-07] MEDS: Lidocaine 1% (20 ml mdv) 20 ML Vial (15:53)
--- NOTE | 2024-10-07 16:08 | PCM.POST.ANE ---
Anesthesia: Postop Eval I Current Vital Signs Temperature: 98.1 F Pulse Rate: 102 Blood Pressure: 136/83 Respiratory Rate: 20 Pulse Ox: 96 Oxygen Delivery Method: Room Air Assessment Airway patent: Yes Spontaneous unlabored respirations: Yes Mental status: Awake and Calm nausea: No Vomiting: No Anesthesia Complication: No Fluid Hydration Crystalloid volume administer (ml): 400 Total IV fluid infused: 400 Progress Note Anesthesia document: Postop Eval 1 completed: Yes
--- NOTE | 2024-10-07 19:24 | POSTOPAN2_ITS ---
Anesthesia Postop Eval I Sum Postop Eval Completion status Anesthesia document: Postop Eval 1 completed: Yes Anesthesia Postop Eval I Summary Anesthesia Postop Eval I Summary: Anesthesia Postop Eval I: Assessment Summary Airway patent Yes 10/07/24 16:09 [email or web address] Spontaneous unlabored Yes 10/07/24 16:09 GOLD [email or web address] respirations Mental status Awake,Calm 10/07/24 16:09 [email or web address] nausea No 10/07/24 16:09 [email or web address] Vomiting No 10/07/24 16:09 [email or web address] Anesthesia Postop Eval I: Fluid Summary Crystalloid volume administer 400 10/07/24 16:09 [email or web address] (ml) Colloids volume administered ( ml) Blood Product volume administered (ml) Total IV fluid infused 400 10/07/24 16:09 [email or web address] Anesthesia Postop Eval I: Summary Notes Anesthesia Complication No 10/07/24 16:09 [email or web address] Anesthesia Complication Comment: Post-operative progress note Anesthesia: Postop Eval II Evaluation Mental status: Awake and Calm Pain Level: 1 nausea: No Vomiting: No Complications Anesthesia Complication: No
--- NOTE | 2024-10-07 19:24 | PCM.POSTANE2 ---
Anesthesia Postop Eval I Sum Postop Eval Completion status Anesthesia document: Postop Eval 1 completed: Yes Anesthesia Postop Eval I Summary Anesthesia Postop Eval I Summary: Anesthesia Postop Eval I: Assessment Summary Airway patent Yes 10/07/24 16:09 INVESTOR RELATIONS DIRECTOR.[email or web address] Spontaneous unlabored Yes 10/07/24 16:09 INVESTOR RELATIONS DIRECTOR.[email or web address] respirations Mental status Awake,Calm 10/07/24 16:09 INVESTOR RELATIONS DIRECTOR.[email or web address] nausea No 10/07/24 16:09 INVESTOR RELATIONS DIRECTOR.[email or web address] Vomiting No 10/07/24 16:09 INVESTOR RELATIONS DIRECTOR.[email or web address] Anesthesia Postop Eval I: Fluid Summary Crystalloid volume administer 400 10/07/24 16:09 INVESTOR RELATIONS DIRECTOR.[email or web address] (ml) Colloids volume administered ( ml) Blood Product volume administered (ml) Total IV fluid infused 400 10/07/24 16:09 INVESTOR RELATIONS DIRECTOR.[email or web address] Anesthesia Postop Eval I: Summary Notes Anesthesia Complication No 10/07/24 16:09 INVESTOR RELATIONS DIRECTOR.[email or web address] Anesthesia Complication Comment: Post-operative progress note Anesthesia: Postop Eval II Evaluation Mental status: Awake and Calm Pain Level: 1 nausea: No Vomiting: No Complications Anesthesia Complication: No
== END 2024-10-07 16:56 | disposition home or self-care (01) ==
LOC: SDC 13:36 → AC 13:36
PROVIDERS: Referring Provider Obstetrics & Gynecology; Visit Provider Obstetrics & Gynecology
PROC: 0UB98ZZ Excision of Uterus, Via Natural or Artificial Opening Endoscopic (ICD-10-PCS; CPT 58558; principal; 2024-10-07 15:00)
DX: N84.0 Polyp of corpus uteri (principal); N93.9 Abnormal uterine and vaginal bleeding, unspecified; E28.2 Polycystic ovarian syndrome
CPT/HCPCS: 58558; 00952; 81025; 85027; 86850; 86900; 86901; 88305

== ENCOUNTER → 2024-12-11 | Outpatient (CLI) | payer OTHER, SELFPAY ==
[2024-12-11 17:39] LABS: Hematocrit 39.9 % (37-47); Hemoglobin 12.6 g/dL (12.0-15.0); Immature Granulocytes Count 0.040 X10^3/uL (0.0-0.0); Mean Corp Hgb Conc 31.6 g/dL (32-36); Mean Corpuscular Volume 80.8 fL (81-99); Mean Platelet Vol. 9.1 fl (6.2-12.0); NRBC Flagged by Analyzer 0 % (0-5); Platelet Count 383 K/mm3 (150-450); RBC Distribution Width CV 12.8 % (11.6-14.6); RBC Distribution Width SD 37.4 fl (35.1-43.9); Red Blood Count 4.94 M/mm3 (4.2-5.4); White Blood Count 11.4 K/mm3 (4.4-11.0)
[2024-12-11 18:26] LABS: AST(SGOT) 18 U/L (<=31); Alanine Aminotransfer ALT/SGPT 19 U/L (<=34); Albumin, Serum 4.7 g/dL (3.5-5.0); Alkaline Phosphatase 85 U/L (35-104); Anion Gap 15 (5-15); BUN 13 mg/dL (4-19); BUN/Creat Ratio 14.8 RATIO (10-20); Calcium,Total 9.3 mg/dL (7.6-11.0); Carbon Dioxide 20.9 mmol/L (21.0-32.0); Chloride 102 mmol/L (98-108); Globulin 2.9 g/dL (2.2-4.2); Glucose 94 mg/dL (70-99); Potassium 4.1 mmol/L (3.3-5.1)
== END | disposition home or self-care (01) ==
PROVIDERS: Referring Provider Obstetrics & Gynecology; Visit Provider Obstetrics & Gynecology
DX: Z12.4 Encounter for screening for malignant neoplasm of cervix (principal); N93.9 Abnormal uterine and vaginal bleeding, unspecified; Z13.1 Encounter for screening for diabetes mellitus
CPT/HCPCS: 36415; 80053; 83036; 85025; 87070; 87205; 87624; 88175; G0145